=== PATIENT | male | born 1945 | race Caucasian/White ===

== ENCOUNTER 2017-12-05 18:40 | Emergency (ER) | payer OTHER ==
[2017-12-05 18:52] VITALS: BP 155/73; BMI 38.7
--- NOTE | 2017-12-05 20:04 | DR.GENAD ---
HPI - PCP Primary Care Physician: NFD - Complaint/Symptoms Chief Complaint:: LEFT FOOT PAIN - Nurses notes reviewed Nurses Notes Review: Yes - Source History Provided: Patient - Mode of Arrival Mode of Arrival: Ambulatory - Timing Onset of Chief Complaint: 11/14/17 PMH - PMH Past Medical History: No Past Surgical History: No - Family History History of Family Medical Conditions: (UNKNOWN) - Social History Type of Tobacco Use: Cigars Does any household member use tobacco: No Alcohol Use: None Do you use any recreational Drugs:: No Lives With: Family Lives Where: Home - infectious screening In the last 2 months have you had wt loss of >10#?: NO Have you had fever, night sweats or hemotysis?: No Have you traveled outside the country in the last 6 months?: No Isolation: Standard PE - Vital Signs Vitals: Temperature 98.4 F Pulse Rate 86 Respiratory Rate 16 Blood Pressure 155/73 O2 Sat by Pulse Oximetry 96 ROR - Labs Reviewed Laboratory: Uric Acid 4.5 mg/dL (3.5-7.2) 12/05/17 20:08 - Discharge Plan Disposition: HOME, SELF-CARE Condition: Stable Prescriptions: Acetaminophen with Codeine [Tylenol/Codeine #3 300-30 mg] 1 tab PO Q8H PRN #12 tab PRN Reason: Pain Ibuprofen [MOTRIN TAB 600 MG *] 600 mg PO TID PRN #20 tab PRN Reason: Pain/Inflammation Sulfamethoxazole-Trimethoprim [BACTRIM DS TAB 800/160 MG *] 1 tab PO BID #20 tab - Follow ups/Referrals Follow ups/Referrals: MARIALUISA,None [Primary Care Provider] - 3 days MAHENDRA CUEVAS [STAFF PHYSICIAN] - 3 days - Instructions Instructions: Cellulitis, Adult, Wyph-[id number], Plantar Fasciitis Additional Instructions: RETURN TO ED IF WORSE.
[2017-12-05] MEDS ORDERED: TORADOL 60 MG VIAL IM ONE (21:23)
[2017-12-05] MEDS ORDERED: BACTRIM DS TAB PO ONE ×2 (21:27→21:30)
[2017-12-05] MEDS ORDERED: TORADOL 60 MG VIAL ONE (21:27)
--- NOTE | 2017-12-05 22:02 | RAD ---
FOOT RADIOGRAPHS CLINICAL HISTORY: 72-year-old male with left foot pain for 2-3 weeks. COMPARISON: None. FINDINGS: 3 views of the left foot were obtained. These demonstrate no acute fracture or malalignment . The Lisfranc interval is maintained. Pes planus with loss of joint space at the 1st tarsometatar katy and 1st MTP joint with juxta-articular erosions and osteophytes at the 1st MTP joint. Degenerativ e changes about the ankle with calcaneal spurring. There is no erosion, aggressive bone lesion or ab normal periosteal reaction. There is no soft tissue calcification or gas. The mineralization is main tained. IMPRESSION: Degenerative changes of the 1st MTP joint and within the mid and hindfoot as described. Gout is withi n the differential at the 1st MTP joint. Correlate with serology. No acute fracture or malalignment. Reported By:
== END 2017-12-05 21:39 | disposition home or self-care (01) ==
LOC: ER 19:00
DX: L03.90 Cellulitis, unspecified (principal); M72.2 Plantar fascial fibromatosis
CPT/HCPCS: 36415; 73630; 84550; 96372; 99282; J1885

== ENCOUNTER 2023-02-21 15:55 | Observation (INO) ==
--- NOTE | 2023-02-21 16:51 | DR.GENAD ---
HPI <Mychal Allan - Last Filed: 02/26/23 08:57> Time Seen Time Seen by Provider: 02/21/23 16:51 PCP Primary Care Physician: ROCIO DE LEON Complaint/Symptoms Chief Complaint Doctors Comments: 77 y/o male brought in for evaluation. Home nurse found pt's BP to be low today, with alow grade temp. Has been eating. No report of cough, fever, chills, chest pain, nausea, vomiting, bowel or bladder complaints. Recent diagnosis of a lung mass. Scheduled for a CT scan in the near future. Has had dramatic weight loss recently. Chief Complaint:: FAMILY BRINGS PT. IN STATING PT'S B/P WAS LOW (87/49) PER HOME HEALTH CARE NURSE AND THEY ARE WORRIED HE IS DEHYDRATED. PT. HAD OUT PATIENT LABS DONE AT MD'S OFFICE SATURDAY AND THEY CALLED FAMILY TODAY STATING PT'S WBC WAS ELEVATED. FAMILY STATES PT. HAS A MASS TO HIS CHEST WHICH HE IS SUPPOSED TO HAVE AN OUT PATIENT CT SCAN DONE ON . COVID-19 Coronavirus risk:travel/contact w/high risk person: No Has patient experienced Coronavirus symptoms: No Source History Provided: Patient Mode of Arrival Mode of Arrival: Ambulatory Timing Onset of Chief Complaint: 02/18/23 PMH <Mychal Allan - Last Filed: 02/26/23 08:57> PMH Past Medical History: Yes Past Medical History: Diabetes Past Surgical History: Yes Surgical History: Other Past Surgical History Comment: CYST REMOVAL Family History History of Family Medical Conditions: No Social History Does patient currently use any type of tobacco product: No Have you used tobacco products in the last 12 months: No Type of Tobacco Use: None Does any household member use tobacco: No Alcohol Use: None Do you use any recreational Drugs:: No Lives With: Family Lives Where: Home Travel Risk Coronavirus risk:travel/contact w/high risk person: No Has patient experienced Coronavirus symptoms: No Infectious screening In the last 2 months have you had wt loss of >10#?: NO Have you had fever, night sweats or hemotysis?: No Have you traveled outside the country in the last 6 months?: No Isolation: Standard PE <Mychal Anguloleeann - Last Filed: 02/26/23 08:57> Vital Signs Vitals: Temperature 97.4 F Pulse Rate [Left Brachial] 71 Pulse Rate 100 Respiratory Rate 22 Blood Pressure [Left Arm] 101/61 Blood Pressure 99/51 O2 Sat by Pulse Oximetry 99 <Ayse Azul - Last Filed: 02/22/23 02:21> Vital Signs Vitals: Temperature 97.4 F Pulse Rate [Left Brachial] 71 Pulse Rate 100 Respiratory Rate 22 Blood Pressure [Left Arm] 101/61 Blood Pressure 99/51 O2 Sat by Pulse Oximetry 99 COURSE <Mychal Allan - Last Filed: 02/26/23 08:57> Treatment Treatment: 77 y/o male brought in by family for evaluation. BP low at home, bet ter on arrival. Pt asymptomatic. 1900 - CBC, CMP acceptable, as is urine. Troponin elevated, 117. Repeat 2 hr about the same, 118.9. Per pt/family, no episodes of chest pain. No obvious lung mass on 1 view [address]R. Will pursue [address] of chest with IV contrast for further evaluation. Maintaining good BP here. Recommend observation admission, to monitor BP , repeat tropnin/labs in am. <Ayse Azul - Last Filed: 02/22/23 02:21> Treatment Treatment: 77 y/o male brought in by family for evaluation. BP low at home, better on arrival. Pt asymptomatic. 1900 - CBC, CMP acceptable, as is urine. Troponin elevated, 117. Repeat 2 hr about the same, 118.9. Per pt/family, no episodes of chest pain. No obvious lung mass on 1 view CXR. Will pursue CT of chest with IV contrast for further evaluation. Maintaining good BP here. Recommend observation admission, to monitor BP , repeat troponin/labs in am. ROR <Mychal Allan - Last Filed: 02/26/23 08:57> Labs Reviewed Laboratory Results Reviewed?: Yes Result Diagrams: 02/22/23 05:18 02/22/23 05:18 Laboratory: 02/21/23 17:14 Blood Blood Culture - Preliminary 02/21/23 17:05 Blood Blood Culture - Preliminary WBC 8.8 X10^3/uL (3.6-10.0) 02/21/23 17:05 RBC 4.88 X10^6/uL (4.7-6.0) 02/21/23 17:05 Hgb 14.3 g/dL (13.5-18.0) 02/21/23 17:05 Hct 42.6 % (42.0-54.0) 02/21/23 17:05 MCV 87.2 fL (80.0-100.0) 02/21/23 17:05 MCH 29.2 pg (27.0-34.0) 02/21/23 17:05 MCHC 33.5 g/dL (33.0-35.0) 02/21/23 17:05 RDW 14.7 % (11.6-16.5) 02/21/23 17:05 Plt Count 356 X10^3/uL (150.0-450.0) 02/21/23 17:05 MPV 7.4 fL (7.4-11.0) 02/21/23 17:05 Neut % (Auto) 74.1 % (42.0-75.0) 02/21/23 17:05 Lymph % (Auto) 16.9 % (21.0-51.0) L 02/21/23 17:05 [place] % (Auto) 7.3 % (0.0-13.0) 02/21/23 17:05 Eos % (Auto) 0.9 % (0.9-2.9) 02/21/23 17:05 Baso % (Auto) 0.8 % (0.2-1.0) 02/21/23 17:05 Neut # (Auto) 6.5 x10^3/uL (2.2-4.8) H 02/21/23 17:05 Lymph # (Auto) 1.5 X10^3/uL (1.3-2.9) 02/21/23 17:05 [place] # (Auto) 0.6 x10^3/uL (0.3-0.8) 02/21/23 17:05 Eos # (Auto) 0.1 x10^3/uL (0.0-0.2) 02/21/23 17:05 Baso # (Auto) 0.1 X10^3/uL (0.0-0.1) 02/21/23 17:05 Absolute Nucleated RBC 0.0 /100WBC 02/21/23 17:05 Sodium 142 mmol/L (136-145) 02/21/23 17:05 Corrected Sodium 142 mmol/L (136-145) 02/21/23 17:05 Potassium 4.2 mmol/L (3.5-5.1) 02/21/23 17:05 Chloride 105 mmol/L (98-107) 02/21/23 17:05 Carbon Dioxide 29.8 mmol/L (21-32) 02/21/23 17:05 BUN 25 mg/dL (7-18) H 02/21/23 17:05 Creatinine 0.91 mg/dL (0.70-1.30) 02/21/23 17:05 Est GFR (MDRD) Af Amer > 60 (>60) 02/21/23 17:05 Est GFR (MDRD) Non-Af > 60 (>60) 02/21/23 17:05 Glucose 115 mg/dL (65-99) H 02/21/23 17:05 Lactic Acid 1.0 mmol/L (0.4-2.0) 02/21/23 17:05 Calcium 8.3 mg/dL (8.5-10.1) L 02/21/23 17:05 Corrected Calcium 9.3 mg/dL (8.5-10.1) 02/21/23 17:05 Total Bilirubin 0.20 mg/dL (0.2-1.0) 02/21/23 17:05 AST 23 Units/L (15-37) 02/21/23 17:05 ALT 24 Units/L (12-78) 02/21/23 17:05 Alkaline Phosphatase 80 Units/L (46-116) 02/21/23 17:05 Troponin I High Sens 118.9 ng/L (4.0-60.0) H* 02/21/23 18:43 Total Protein 6.8 g/dL (6.4-8.2) 02/21/23 17:05 Albumin 2.7 g/dL (3.4-5.0) L 02/21/23 17:05 Globulin 4.1 g/dL (2.5-4.5) 02/21/23 17:05 Albumin/Globulin Ratio 0.7 Ratio (1.1-2.1) L 02/21/23 17:05 Specimen Type Clean catch urine 02/21/23 17:41 Urine Color Yellow (YELLOW) 02/21/23 17:41 Urine Appearance Clear (CLEAR) 02/21/23 17:41 Urine pH 5.0 (5.0 - 8.0) 02/21/23 17:41 Ur Specific Talent 1.015 (1.000-1.030) 02/21/23 17:41 Urine Protein Negative (NEGATIVE) 02/21/23 17:41 Urine Glucose (UA) 4+ (NEGATIVE) 02/21/23 17:41 Urine Ketones Negative (NEGATIVE) 02/21/23 17:41 Urine Blood Negative (NEGATIVE) 02/21/23 17:41 Urine Nitrite Negative (NEGATIVE) 02/21/23 17:41 Urine Bilirubin Negative (NEGATIVE) 02/21/23 17:41 Urine Urobilinogen Normal (NORMAL) 02/21/23 17:41 Ur Leukocyte Esterase 1+ (NEGATIVE) 02/21/23 17:41 Urine RBC None seen /HPF (0-3) 02/21/23 17:41 Urine WBC 3-5 /HPF (0-5) 02/21/23 17:41 Ur Squamous Epith Cells Rare /HPF (NEGATIVE) 02/21/23 17:41 Urine Bacteria Trace /HPF (NEGATIVE) 02/21/23 17:41 Ur Culture Indicated? No/not indicated 02/21/23 17:41 XRAY XRAY Interpreted by: Self X-ray Results: CXR acceptable. EKG Rate: 73 [place]: LAD Rhythm: NSR (w/sinus arrhythmia, PACs) ST: Nonsp <Ayse Azul - Last Filed: 02/22/23 02:21> Labs Reviewed Laboratory: 02/21/23 17:14 Blood Blood Culture - Preliminary 02/21/23 17:05 Blood Blood Culture - Preliminary WBC 8.8 X10^3/uL (3.6-10.0) 02/21/23 17:05 RBC 4.88 X10^6/uL (4.7-6.0) 02/21/23 17:05 Hgb 14.3 g/dL (13.5-18.0) 02/21/23 17:05 Hct 42.6 % (42.0-54.0) 02/21/23 17:05 MCV 87.2 fL (80.0-100.0) 02/21/23 17:05 MCH 29.2 pg (27.0-34.0) 02/21/23 17:05 MCHC 33.5 g/dL (33.0-35.0) 02/21/23 17:05 RDW 14.7 % (11.6-16.5) 02/21/23 17:05 Plt Count 356 X10^3/uL (150.0-450.0) 02/21/23 17:05 MPV 7.4 fL (7.4-11.0) 02/21/23 17:05 Neut % (Auto) 74.1 % (42.0-75.0) 02/21/23 17:05 Lymph % (Auto) 16.9 % (21.0-51.0) L 02/21/23 17:05 [place] % (Auto) 7.3 % (0.0-13.0) 02/21/23 17:05 Eos % (Auto) 0.9 % (0.9-2.9) 02/21/23 17:05 Baso % (Auto) 0.8 % (0.2-1.0) 02/21/23 17:05 Neut # (Auto) 6.5 x10^3/uL (2.2-4.8) H 02/21/23 17:05 Lymph # (Auto) 1.5 X10^3/uL (1.3-2.9) 02/21/23 17:05 [place] # (Auto) 0.6 x10^3/uL (0.3-0.8) 02/21/23 17:05 Eos # (Auto) 0.1 x10^3/uL (0.0-0.2) 02/21/23 17:05 Baso # (Auto) 0.1 X10^3/uL (0.0-0.1) 02/21/23 17:05 Absolute Nucleated RBC 0.0 /100WBC 02/21/23 17:05 Sodium 142 mmol/L (136-145) 02/21/23 17:05 Corrected Sodium 142 mmol/L (136-145) 02/21/23 17:05 Potassium 4.2 mmol/L (3.5-5.1) 02/21/23 17:05 Chloride 105 mmol/L (98-107) 02/21/23 17:05 Carbon Dioxide 29.8 mmol/L (21-32) 02/21/23 17:05 BUN 25 mg/dL (7-18) H 02/21/23 17:05 Creatinine 0.91 mg/dL (0.70-1.30) 02/21/23 17:05 Est GFR (MDRD) Af Amer > 60 (>60) 02/21/23 17:05 Est GFR (MDRD) Non-Af > 60 (>60) 02/21/23 17:05 Glucose 115 mg/dL (65-99) H 02/21/23 17:05 Lactic Acid 1.0 mmol/L (0.4-2.0) 02/21/23 17:05 Calcium 8.3 mg/dL (8.5-10.1) L 02/21/23 17:05 Corrected Calcium 9.3 mg/dL (8.5-10.1) 02/21/23 17:05 Total Bilirubin 0.20 mg/dL (0.2-1.0) 02/21/23 17:05 AST 23 Units/L (15-37) 02/21/23 17:05 ALT 24 Units/L (12-78) 02/21/23 17:05 Alkaline Phosphatase 80 Units/L (46-116) 02/21/23 17:05 Troponin I High Sens 118.9 ng/L (4.0-60.0) H* 02/21/23 18:43 Total Protein 6.8 g/dL (6.4-8.2) 02/21/23 17:05 Albumin 2.7 g/dL (3.4-5.0) L 02/21/23 17:05 Globulin 4.1 g/dL (2.5-4.5) 02/21/23 17:05 Albumin/Globulin Ratio 0.7 Ratio (1.1-2.1) L 02/21/23 17:05 Specimen Type Clean catch urine 02/21/23 17:41 Urine Color Yellow (YELLOW) 02/21/23 17:41 Urine Appearance Clear (CLEAR) 02/21/23 17:41 Urine pH 5.0 (5.0 - 8.0) 02/21/23 17:41 Ur Specific Talent 1.015 (1.000-1.030) 02/21/23 17:41 Urine Protein Negative (NEGATIVE) 02/21/23 17:41 Urine Glucose (UA) 4+ (NEGATIVE) 02/21/23 17:41 Urine Ketones Negative (NEGATIVE) 02/21/23 17:41 Urine Blood Negative (NEGATIVE) 02/21/23 17:41 Urine Nitrite Negative (NEGATIVE) 02/21/23 17:41 Urine Bilirubin Negative (NEGATIVE) 02/21/23 17:41 Urine Urobilinogen Normal (NORMAL) 02/21/23 17:41 Ur Leukocyte Esterase 1+ (NEGATIVE) 02/21/23 17:41 Urine RBC None seen /HPF (0-3) 02/21/23 17:41 Urine WBC 3-5 /HPF (0-5) 02/21/23 17:41 Ur Squamous Epith Cells Rare /HPF (NEGATIVE) 02/21/23 17:41 Urine Bacteria Trace /HPF (NEGATIVE) 02/21/23 17:41 Ur Culture Indicated? No/not indicated 02/21/23 17:41 Opioid <Mychal Allan - Last Filed: 02/26/23 08:57> Opioid Risk Tool Age (Edin box if 16-45): No History of Preadolescent Sexual Abuse: No Total: 0 Total Score Risk Category: Low Risk Copyright: Carson JAUREGUI predicting aberrant behaviors <Ayse Azul - Last Filed: 02/22/23 02:21> Opioid Risk Tool Total: 0 Total Score Risk Category: Low Risk Discharge Plan Diagnosis Discharge Problem: Acute hypotension, Elevated troponin Discharge Plan Patient Disposition: 09 ADMITTED INPATIENT Condition: Stable
[2023-02-21] MEDS ORDERED: NS 500 ML IV 500 ML IV ONE ×2 (16:58→16:59)
[2023-02-21 17:28] LABS: BASOPHILS # (AUTO) 0.1 X10^3/uL (0.0-0.1); BASOPHILS % (AUTO) 0.8 % (0.2-1.0); EOSINOPHILS # (AUTO) 0.1 x10^3/uL (0.0-0.2); EOSINOPHILS % (AUTO) 0.9 % (0.9-2.9); HEMATOCRIT 42.6 % (42.0-54.0); HEMOGLOBIN 14.3 g/dL (13.5-18.0); LYMPHOCYTES # (AUTO) 1.5 X10^3/uL (1.3-2.9); LYMPHOCYTES % (AUTO) 16.9 % (21.0-51.0); MEAN CORPUSCULAR HEMOGLOBIN 29.2 pg (27.0-34.0); MEAN CORPUSCULAR HGB CONC 33.5 g/dL (33.0-35.0); MEAN CORPUSCULAR VOLUME 87.2 fL (80.0-100.0); MEAN PLATELET VOLUME 7.4 fL (7.4-11.0); MONOCYTES # (AUTO) 0.6 x10^3/uL (0.3-0.8); MONOCYTES % (AUTO) 7.3 % (0.0-13.0); NEUTROPHILS # (AUTO) 6.5 x10^3/uL (2.2-4.8); NEUTROPHILS % (AUTO) 74.1 % (42.0-75.0); RED BLOOD COUNT 4.88 X10^6/uL (4.7-6.0); RED CELL DISTRIBUTION WIDTH 14.7 % (11.6-16.5); WHITE BLOOD COUNT 8.8 X10^3/uL (3.6-10.0)
--- NOTE | 2023-02-21 17:30 | RAD ---
HISTORYPT'S B/P WAS LOW (87/49) PER HOME HEALTH CARE NURSE AND THEY ARE WORRIED HE IS DEHYDRATED. Relevant Clinical InformationSTUDYCHEST, 1 VIEWCOMPARISONNone availableFINDINGSTrachea is midline, normal heart size. There is no pneumothorax or pleural effusions, there is increase of the interstitial markings at the bases that it could chronic versus viral pneumonia. Osseus structures are unremarkable.IMPRESSIONPatchy interstitial radiopacities in the bases could represent chronic changes versus viral pneumonia. Follow-up recommendedElectronically signed by: Paola James (Feb 21, 2023 17:29:06)
[2023-02-21 17:52] LABS: ALANINE AMINOTRANSFERASE 24 Units/L (12-78); ALBUMIN 2.7 g/dL (3.4-5.0); ALKALINE PHOSPHATASE 80 Units/L (46-116); ASPARTATE AMINO TRANSFERASE 23 Units/L (15-37); BLOOD UREA NITROGEN 25 mg/dL (7-18); CALCIUM 8.3 mg/dL (8.5-10.1); CARBON DIOXIDE 29.8 mmol/L (21-32); CHLORIDE 105 mmol/L (98-107); COR CA(FOR HYPOALB) 9.3 mg/dL (8.5-10.1); COR NA(FOR HYPERGLY) 142 mmol/L (136-145); CREATININE 0.91 mg/dL (0.70-1.30); SODIUM 142 mmol/L (136-145); TOTAL PROTEIN 6.8 g/dL (6.4-8.2); eGFR NON BLACK RACES > 60 (>60)
[2023-02-21 18:22] LABS: BILIRUBIN,URINE NEGATIVE (NEGATIVE); BLOOD/HEMOGLOBIN,URINE NEGATIVE (NEGATIVE); GLUCOSE, URINE 4+ (NEGATIVE); KETONES,URINE NEGATIVE (NEGATIVE); LEUKOCYTE ESTERASE ,URINE 1+ (NEGATIVE); NITRITES,URINE NEGATIVE (NEGATIVE); PROTEIN,URINE NEGATIVE (NEGATIVE); UROBILINOGEN,URINE NORMAL (NORMAL)
--- NOTE | 2023-02-21 18:23 | EKG ---
Test Reason : elevated troponin Blood Pressure : */* mmHG Vent. Rate : 73 BPM Atrial Rate : 73 BPM P-R Int : 178 ms QRS Dur : 102 ms QT Int : 426 ms P-R-T Axes : 83 -39 81 degrees QTc Int : 469 ms Sinus rhythm with premature atrial complexes in a pattern of bigeminy Left axis deviation Abnormal ECG No previous ECGs available Confirmed by Aditya Fisher ([id number]) on 02/21/2023 7:28:16 PM Referred By: Confirmed By: Aditya Fisher
[2023-02-21 18:34] LABS: APPEARANCE,URINE CLEAR (CLEAR); COLOR,URINE YELLOW (YELLOW)
[2023-02-21 18:35] LABS: BACTERIA,URINE TRACE /HPF (NEGATIVE); RBC,URINE NONE SEEN /HPF (0-3); SQUAMOUS EPITHELIAL CELL,UR RARE /HPF (NEGATIVE)
--- NOTE | 2023-02-21 20:57 | CT ---
HISTORYh/o lung mass, shortness of breathSTUDYCTA CHESTCOMPARISONNoneTECHNIQUEMultiple axial images of the chest were obtained from the thoracic inlet to the upper abdomen after the administration of IV contrast. 3D reconstructions utilizing axial MIPS imaging was performed and reviewed. Dose reduction techniques including Automated Exposure Control (AEC) and adjustment of mA and kV were utilized.FINDINGSAdequate bolus timing. Negative for pulmonary embolus.Advanced coronary atherosclerotic calcifications. No pericardial effusion.Limited evaluation of the upper abdomen demonstrates a left dorsal renal cyst. No acute upper abdominal process.The heart is enlarged. The ascending aorta spans 4.0 centimeters AP dimension.Bilateral lower lobe airspace infiltrates are present, left greater than right, suggesting pneumonia. There is mild bronchiectasis present in the lower lobes.No pneumothorax or layering pleural effusion. Bone windows demonstrate multilevel bridging anterior osteophytes. No spinal fracture or bony encroachment of the central canal.IMPRESSIONNegative for pulmonary embolus.Moderate-severity bibasilar pneumonia superimposed upon chronic lung disease. Follow-up to document clearing is suggested given history of lung mass.Electronically signed by: Dontrell Bustamante (Feb 21, 2023 20:56:03)
[2023-02-21] MEDS ORDERED: ROCEPHIN VIAL 1 GRAM 1 G in NS 100 ML IV 100 ML IV SCH (21:19)
[2023-02-21] MEDS ORDERED: LIPITOR TAB 10 MG PO SCH (21:39)
[2023-02-21] MEDS ORDERED: NS 250 ML IV 0 ML IV ONE (21:48)
[2023-02-21] MEDS ORDERED: NS 1,000 ML IV 1,000 ML IV SCH (22:00)
[2023-02-21 22:09] VITALS: BMI 26.2
[2023-02-22 05:44] LABS: BASOPHILS # (AUTO) 0.1 X10^3/uL (0.0-0.1); BASOPHILS % (AUTO) 1.2 % (0.2-1.0); EOSINOPHILS # (AUTO) 0.1 x10^3/uL (0.0-0.2); EOSINOPHILS % (AUTO) 1.2 % (0.9-2.9); HEMATOCRIT 37.6 % (42.0-54.0); HEMOGLOBIN 12.7 g/dL (13.5-18.0); LYMPHOCYTES # (AUTO) 1.6 X10^3/uL (1.3-2.9); LYMPHOCYTES % (AUTO) 23.4 % (21.0-51.0); MEAN CORPUSCULAR HEMOGLOBIN 29.3 pg (27.0-34.0); MEAN CORPUSCULAR HGB CONC 33.8 g/dL (33.0-35.0); MEAN CORPUSCULAR VOLUME 86.6 fL (80.0-100.0); MEAN PLATELET VOLUME 7.5 fL (7.4-11.0); MONOCYTES # (AUTO) 0.4 x10^3/uL (0.3-0.8); MONOCYTES % (AUTO) 6.6 % (0.0-13.0); NEUTROPHILS # (AUTO) 4.5 x10^3/uL (2.2-4.8); NEUTROPHILS % (AUTO) 67.6 % (42.0-75.0); RED BLOOD COUNT 4.34 X10^6/uL (4.7-6.0); RED CELL DISTRIBUTION WIDTH 14.4 % (11.6-16.5); WHITE BLOOD COUNT 6.7 X10^3/uL (3.6-10.0)
[2023-02-22 06:10] LABS: ALANINE AMINOTRANSFERASE 21 Units/L (12-78); ALBUMIN 2.5 g/dL (3.4-5.0); ALKALINE PHOSPHATASE 68 Units/L (46-116); ASPARTATE AMINO TRANSFERASE 20 Units/L (15-37); BLOOD UREA NITROGEN 21 mg/dL (7-18); CALCIUM 8.2 mg/dL (8.5-10.1); CARBON DIOXIDE 32.7 mmol/L (21-32); CHLORIDE 105 mmol/L (98-107); COR CA(FOR HYPOALB) 9.4 mg/dL (8.5-10.1); CREATINE KINASE 30 Units/L (39-308); CREATININE 0.88 mg/dL (0.70-1.30); SODIUM 143 mmol/L (136-145); TOTAL PROTEIN 6.3 g/dL (6.4-8.2); eGFR NON BLACK RACES > 60 (>60)
[2023-02-22] MEDS ORDERED: ZINC SULFATE PO SCH (09:00)
[2023-02-22] MEDS ORDERED: LOVENOX INJ 40 MG SYR SC SCH (09:00)
[2023-02-22] MEDS ORDERED: DUONEB 0.5 MG/3 MG (3 mL) NEB SCH (09:00)
[2023-02-22] MEDS ORDERED: VITAMIN C PO SCH (09:00)
[2023-02-22] MEDS ORDERED: PATIENT'S HOME MEDICATION (Zinc 50 mg Tablet) PO SCH (09:00)
[2023-02-22 10:02] VITALS: BP 129/61
--- NOTE | 2023-02-22 10:44 | DR.SSS ---
SHORT STAY SUMMARY Admission Date Date of Admission: 02/21/23 Discharge Date Discharge Date: 02/22/23 Admission Diagnoses Admission Diagnoses: Hypotension Non-NE troponin elevation Discharge Diagnoses Discharge Diagnoses: Hypotension Non-NE troponin elevation Chief Complaint Chief Complaint: Hypotension History of Present Illness History of Present Illness: Pt is a 77 year old male admitted after having hypotensive episode at home. Home nurse noted blood pressure was low SBP 80s and pcp had concern for dehydration, advised to go to ER. Past Medical History Past Medical History: Diabetes Past Surgical History Surgical History: Other Allergies Allergies Allergy/AdvReac Type Severity Reaction Status Date / Time No Known Drug Allergies Allergy Verified 02/21/23 16:01 Medications Home Medications: No Known Drug Allergies Allergy (Verified 02/21/23 16:01) CONTINUE taking the following medications ascorbic acid (vitamin C) 1,000 mg tablet (Vitamin C) 500 mg PO QDAY 02/21/23 [History] atorvastatin 10 mg tablet 1 tab PO QHS 02/21/23 [History] citalopram 20 mg tablet 1 tab PO QDAY 02/21/23 [History] empagliflozin 25 mg tablet (Jardiance) 1 tab PO QDAY 02/21/23 [History] furosemide 40 mg tablet 1 tab PO QAM 02/21/23 [History] metformin 500 mg tablet,extended release 24 hr 2 tab PO QHS 02/21/23 [History] potassium chloride 20 mEq tablet,extended release 1 tab PO QDAY 02/21/23 [History] zinc 50 mg tablet 50 mg PO QDAY 02/21/23 [History] Social History Does patient currently use any type of tobacco product: No Have you used tobacco products in the last 12 months: No Type of Tobacco Use: None Does any household member use tobacco: No Alcohol Use: None Drug Use: None Review of Systems Constitutional: No Symptoms Reported Eyes: No Symptoms Reported ENT: No Symptoms Reported Respiratory: No Symptoms Reported Cardiovascular: No Symptoms Reported Gastrointestinal: No Symptoms Reported Genitourinary: No Symptoms Reported Musculoskeletal: No Symptoms Reported Skin: No Symptoms Reported Neurological: No Symptoms Reported Physical Exam Vital Signs: Last Vital Signs Temp 97.8 F 02/22/23 04:00 Pulse 68 02/22/23 04:00 Resp 20 02/22/23 04:00 BP 114/61 02/22/23 04:00 Pulse Ox 97 02/22/23 04:00 O2 Del Method Room Air 02/22/23 07:00 O2 Flow Rate 2 02/21/23 22:00 FiO2 28 02/21/23 22:00 Oriented: Normal Eyes: Normal Ear: Normal Nose: Normal Respiratory: Clear Throughout Cardiovascular: Normal : Normal Auscultation: Bowel Sounds: Normal Palpation: Normal Tenderness: Normal Skin: Normal Musculoskeletal: Normal Psychiatric: Normal Speech Pattern: Clear Labs Labs: Laboratory Last Values WBC 6.7 X10^3/uL (3.6-10.0) 02/22/23 05:18 RBC 4.34 X10^6/uL (4.7-6.0) L 02/22/23 05:18 Hgb 12.7 g/dL (13.5-18.0) L 02/22/23 05:18 Hct 37.6 % (42.0-54.0) L 02/22/23 05:18 MCV 86.6 fL (80.0-100.0) 02/22/23 05:18 MCH 29.3 pg (27.0-34.0) 02/22/23 05:18 MCHC 33.8 g/dL (33.0-35.0) 02/22/23 05:18 RDW 14.4 % (11.6-16.5) 02/22/23 05:18 Plt Count 325 X10^3/uL (150.0-450.0) 02/22/23 05:18 MPV 7.5 fL (7.4-11.0) 02/22/23 05:18 Neut % (Auto) 67.6 % (42.0-75.0) 02/22/23 05:18 Lymph % (Auto) 23.4 % (21.0-51.0) 02/22/23 05:18 [place] % (Auto) 6.6 % (0.0-13.0) 02/22/23 05:18 Eos % (Auto) 1.2 % (0.9-2.9) 02/22/23 05:18 Baso % (Auto) 1.2 % (0.2-1.0) H 02/22/23 05:18 Neut # (Auto) 4.5 x10^3/uL (2.2-4.8) 02/22/23 05:18 Lymph # (Auto) 1.6 X10^3/uL (1.3-2.9) 02/22/23 05:18 [place] # (Auto) 0.4 x10^3/uL (0.3-0.8) 02/22/23 05:18 Eos # (Auto) 0.1 x10^3/uL (0.0-0.2) 02/22/23 05:18 Baso # (Auto) 0.1 X10^3/uL (0.0-0.1) 02/22/23 05:18 Absolute Nucleated RBC 0.0 /100WBC 02/22/23 05:18 Sodium 143 mmol/L (136-145) 02/22/23 05:18 Corrected Sodium TNP 02/22/23 05:18 Potassium 4.0 mmol/L (3.5-5.1) 02/22/23 05:18 Chloride 105 mmol/L (98-107) 02/22/23 05:18 Carbon Dioxide 32.7 mmol/L (21-32) H 02/22/23 05:18 BUN 21 mg/dL (7-18) H 02/22/23 05:18 Creatinine 0.88 mg/dL (0.70-1.30) 02/22/23 05:18 Est GFR (MDRD) Af Amer > 60 (>60) 02/22/23 05:18 Est GFR (MDRD) Non-Af > 60 (>60) 02/22/23 05:18 Glucose 93 mg/dL (65-99) 02/22/23 05:18 POC Glucose (mg/dL) 97 mg/dL (65-99) 02/22/23 05:17 Lactic Acid 1.0 mmol/L (0.4-2.0) 02/21/23 17:05 Calcium 8.2 mg/dL (8.5-10.1) L 02/22/23 05:18 Corrected Calcium 9.4 mg/dL (8.5-10.1) 02/22/23 05:18 Total Bilirubin 0.30 mg/dL (0.2-1.0) 02/22/23 05:18 AST 20 Units/L (15-37) 02/22/23 05:18 ALT 21 Units/L (12-78) 02/22/23 05:18 Alkaline Phosphatase 68 Units/L (46-116) 02/22/23 05:18 Creatine Kinase 30 Units/L (39-308) L 02/22/23 05:18 Troponin I High Sens 101.7 ng/L (4.0-60.0) H* 02/22/23 05:18 Total Protein 6.3 g/dL (6.4-8.2) L 02/22/23 05:18 Albumin 2.5 g/dL (3.4-5.0) L 02/22/23 05:18 Globulin 3.8 g/dL (2.5-4.5) 02/22/23 05:18 Albumin/Globulin Ratio 0.7 Ratio (1.1-2.1) L 02/22/23 05:18 Specimen Type Clean catch urine 02/21/23 17:41 Urine Color Yellow (YELLOW) 02/21/23 17:41 Urine Appearance Clear (CLEAR) 02/21/23 17:41 Urine pH 5.0 (5.0 - 8.0) 02/21/23 17:41 Ur Specific [place] 1.015 (1.000-1.030) 02/21/23 17:41 Urine Protein Negative (NEGATIVE) 02/21/23 17:41 Urine Glucose (UA) 4+ (NEGATIVE) 02/21/23 17:41 Urine Ketones Negative (NEGATIVE) 02/21/23 17:41 Urine Blood Negative (NEGATIVE) 02/21/23 17:41 Urine Nitrite Negative (NEGATIVE) 02/21/23 17:41 Urine Bilirubin Negative (NEGATIVE) 02/21/23 17:41 Urine Urobilinogen Normal (NORMAL) 02/21/23 17:41 Ur Leukocyte Esterase 1+ (NEGATIVE) 02/21/23 17:41 Urine RBC None seen /HPF (0-3) 02/21/23 17:41 Urine WBC 3-5 /HPF (0-5) 02/21/23 17:41 Ur Squamous Epith Cells Rare /HPF (NEGATIVE) 02/21/23 17:41 Urine Bacteria Trace /HPF (NEGATIVE) 02/21/23 17:41 Ur Culture Indicated? No/not indicated 02/21/23 17:41 Assessment/Plan (1) Pneumonia: (2) Acute hypotension: (3) Elevated troponin: Hospital Course Hospital Course: Pt on examination did not have any symptoms and blood pressure had stabilized after receiving IVF. Labs/imaging: Wbc 6.7, Hgb 12.7, Plt 325, Na 143, K 4, Creatinine 0.88, Glucose 93, UA negative, CXR: Patchy interstitial radiopacities in the bases could represent chronic changes versus viral pneumonia. CTA chest was obtained that revealed: Negative for pulmonary embolus. Moderate-severity bibasilar pneumonia superimposed upon chronic lung disease. Pt was admitted overnight for observation. He has not required oxygen and denies any symptoms suggesting pneumonia except that there is evidence on imaging. He was treated with IVF and antibiotics-Rocephin. Troponin was mildly elevated but repeat trending down, that may have been due to heart strain from hypotension. Exhibits no cardiac symptoms and ekg negative for STEMI. Recommend cardiology referral outpatient. Pt discharged in stable condition. Instructed to discontinue lasix. Rx levaquin. Pt to follow up with pcp within 1 week. Discharge Medications Discharge Medications: Home Medication List ascorbic acid (vitamin C) 1,000 mg tablet (Vitamin C) 500 mg PO QDAY 02/21/23 [History] atorvastatin 10 mg tablet 1 tab PO QHS 02/21/23 [History] citalopram 20 mg tablet 1 tab PO QDAY 02/21/23 [History] empagliflozin 25 mg tablet (Jardiance) 1 tab PO QDAY 02/21/23 [History] furosemide 40 mg tablet 1 tab PO QAM 02/21/23 [History] metformin 500 mg tablet,extended release 24 hr 2 tab PO QHS 02/21/23 [History] potassium chloride 20 mEq tablet,extended release 1 tab PO QDAY 02/21/23 [History] zinc 50 mg tablet 50 mg PO QDAY 02/21/23 [History] Prescriptions: Discharge Plan Discharge Plan Patient Disposition: 06 HOME HEALTH SERVICE Condition: Stable Health Concerns: Post Hospitalization: new medications and changes needed to prevent readmission or further decline. Pt educated and given instructions on all concerns. Care Plan Goals: Problem: Chest Pain Goals: Chest pain improving/resolved Instructions: Contact your physician or report to the closest Emergency Department if your chest pain returns or worsens. Take medications as prescribed. Follow up with your primary doctor as instructed. Plan of Treatment: Continue with present treatment and follow up plan. Pt is to keep follow up appointment as instructed and take medications as ordered. Prescriptions: New levofloxacin 750 mg tablet 750 mg PO Q24H 5 Days Qty: 5 0RF Continued ascorbic acid (vitamin C) [Vitamin C] 1,000 mg Tablet 500 mg PO QDAY atorvastatin 10 mg tablet 1 tab PO QHS citalopram 20 mg tablet 1 tab PO QDAY zinc 50 mg Tablet 50 mg PO QDAY metformin 500 mg tablet extended release 24 hr 2 tab PO QHS Jardiance 25 mg tablet 1 tab PO QDAY Discontinued furosemide 40 mg tablet 1 tab PO QAM potassium chloride 20 mEq tablet extended release 1 tab PO QDAY Follow ups/Referrals Follow ups/Referrals: ROCIO DE LEON [Primary Care Provider] - 02/27/23 10:30 am Instructions Instructions: Hypotension, [id number], Nonspecific Chest Pain, Adult, [id number], Community-Acquired Pneumonia, Adult, [id number] Stand Alone Forms: Excuse From Work or School, [facility]
== END 2023-02-22 11:14 | disposition home health service (06) ==
LOC: MED/SURG 15:55 → ER 15:55 → MED/SURG 21:20
PROVIDERS: ADMIT Family Medicine; ATTEND Family Medicine
DX: R77.8 Other specified abnormalities of plasma proteins; I95.89 Other hypotension; E11.65 Type 2 diabetes mellitus with hyperglycemia; J13 Pneumonia due to Streptococcus pneumoniae; R07.89 Other chest pain; R06.02 Shortness of breath